=== PATIENT | female | born 1965 ===

== ENCOUNTER 2018-10-21 10:43 | Emergency (ER) | payer OTHER ==
[2018-10-21 10:43] VITALS: BMI 26.4
[2018-10-21 10:58] VITALS: RESP 18
--- NOTE | 2018-10-21 11:34 | ED PDOC ---
HPI: Influenza Time Seen by Provider: 10/21/18 10:57 Chief Complaint: Flu-like Symptoms History Per: Patient, Warm In ([place]: [id number]) Exam Limitations: no limitations Symptoms include: fever, headache, bodyaches, sore throat, nasal congestion. denies: cough Additional complaint(s):: No PMHx presenting with bodyaches, fever, chills x 3-4 days. States that her "whole body hurts" from her head to the soles of her feet. States she has sore throat as well, dry cough, and fevers although she never checked her temperature at home. States she has had nausea but has not had any vomiting. No recent travel, no sick contacts. Did not receive flu shot this year. PMD: [facility] Past Medical History Reviewed: Historical Data, Nursing Documentation, Vital Signs Vital Signs: Last Vital Signs Temp 97.7 F 10/21/18 10:58 Pulse 86 10/21/18 10:58 Resp 18 10/21/18 10:58 BP 148/72 10/21/18 10:58 Pulse Ox 98 10/21/18 10:58 - Medical History PMH: Gall Bladder Disease (cholelithiasis) Denies: Chronic Kidney Disease - Surgical History Surgical History: Cholecystectomy (stones removed) - Family History Family History: States: Unknown Family Hx - Immunization History Hx Tetanus Toxoid Vaccination: Yes Hx Influenza Vaccination: No (none for 2018) Hx Pneumococcal Vaccination: Yes - Home Medications Home Medications: Ambulatory Orders Medication Instructions Recorded Meclizine [Antivert] 25 mg PO Q6 PRN 03/08/17 Naproxen [Naprosyn] 1 tab PO BID PRN #25 tab 03/08/17 Nitrofurantoin Macrocrystals 1 cap PO BID #14 cap 03/08/17 [Macrobid] Ibuprofen [Motrin Tab] 600 mg PO Q6 #30 tab 10/21/18 Ondansetron ODT [Zofran ODT] 4 mg PO Q8 PRN #12 odt 10/21/18 Oseltamivir Phosphate [Tamiflu] 75 mg PO BID 5 Days #10 capsule 10/21/18 - Allergies Allergies/Adverse Reactions: Allergies Allergy/AdvReac Type Severity Reaction Status Date / Time No Known Allergies Allergy Verified 10/21/18 10:57 Review of Systems ROS Statement: Except As Marked, All Systems Reviewed And Found Negative Constitutional: Positive for: Fever ENT: Positive for: Throat Pain Gastrointestinal: Positive for: Nausea Musculoskeletal: Positive for: Neck Pain, Shoulder Pain, Arm Pain, Back Pain, Hand Pain, Leg Pain, Foot Pain, Other (Total body pain) Physical Exam - Reviewed Nursing Documentation Reviewed: Yes Vital Signs Reviewed: Yes - Physical Exam Appears: Positive for: Well, Non-toxic, No Acute Distress Head Exam: Positive for: ATRAUMATIC, NORMAL INSPECTION, NORMOCEPHALIC Skin: Positive for: Normal Color, Warm, DRY Eye Exam: Positive for: EOMI, Normal appearance, PERRL ENT: Positive for: Normal ENT Inspection Neck: Positive for: Normal, Painless ROM Cardiovascular/Chest: Positive for: Regular Rate, Rhythm Respiratory: Positive for: CNT, Normal Breath Sounds Gastrointestinal/Abdominal: Positive for: Normal Exam, Soft. 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 Negative for: Motor/Sensory Deficits Medical Decision Making Medical Decision MakinAM A/P: No PMHx presenting with bodyaches, fevers, chills --Objectively, patient appears extremely well, in no acute distress, appearing in good health, normal vitals --Symptoms likely viral in etiology, possibly influenza --Will check swab, treat symptoms, and refer patient to [facility] for checkup 1230PM --Patient feeling better, tolerating PO, well appearing upon discharge - ECG O2 Sat by Pulse Oximetry: 98 Disposition - Clinical Impression Clinical Impression: Influenza-like symptoms - Patient ED Disposition Is Patient to be Admitted: No - Disposition Referrals: [facility] [Outside] Disposition: Routine/Home Disposition Time: 12:47 Condition: STABLE Prescriptions: Ibuprofen [Motrin Tab] 600 mg PO Q6 #30 tab Ondansetron ODT [Zofran ODT] 4 mg PO Q8 PRN #12 odt PRN Reason: Nausea/Vomiting Oseltamivir Phosphate [Tamiflu] 75 mg PO BID 5 Days #10 capsule Instructions: Flu, Adult (DC) Forms: [place] (Irish) Print Language: MALAGASY
[2018-10-21 12:57] VITALS: BP 132/75; PULSE 64; TEMP 97.2; O2SAT 99
== END 2018-10-21 12:59 | disposition home or self-care (01) ==
LOC: H.ER 10:43
DX: J11.1 Influenza due to unidentified influenza virus with other respiratory manifestations (principal)
CPT/HCPCS: 87804; 96372; 99283; J1885